=== PATIENT | female | born 2005 | race Caucasian/White ===

== ENCOUNTER 2025-04-05 20:36 | Emergency (ER) | payer OTHER, SELFPAY ==
[2025-04-05 21:15] VITALS: BP 108/74; PULSE 86; RESP 16; TEMP 37.1; O2SAT 100; BMI 21.9
[2025-04-05 21:21] LABS: Hematocrit 37.3 % (36-47); Hemoglobin 11.80 g/dL (12.4-14.8); Mean Corpuscular HGB Conc 31.6 g/dL (30-55); Mean Corpuscular Hemoglobin 27.8 pg (27-33); Mean Corpuscular Volume 87.8 fl (85-98); Nucleated Red Blood Cells % 0 %; Platelet Count 210 10^3/cmm (157-399); Red Blood Count 4.25 10^6/uL (3.85-5.65); White Blood Count 8.17 10^3/uL (4.5-13.0)
[2025-04-05 21:34] LABS: HCG, Serum Qual Negative (Negative)
[2025-04-05 21:42] LABS: Alanine Aminotransferase 17 U/L (0-33); Albumin Level 4.6 g/dL (3.5-5.2); Alkaline Phosphatase 79 U/L (35-105); Anion Gap 15.0 (5-19); Aspartate Amino Transferase 19 U/L (0-32); Blood Urea Nitrogen 9 mg/dL (6-20); Calcium 9.8 mg/dL (8.5-10.5); Carbon Dioxide 27 mmol/L (22-29); Chloride 104 mmol/L (98-107); Creatinine Clr Calc Pharmacy 126.2072; Globulin 2.8 g/dL (1.3-4.6); Glucose 102 mg/dL (65-115); Lipase 35 U/L (13-60); Osmolality Calculated 293 mOsm/kg (285-295); Potassium 4.0 mmol/L (3.5-5.1); Sodium 142 mmol/L (136-145); Total Protein 7.4 g/dL (6.6-8.7)
[2025-04-05 22:36] LABS: Glucose Urine UA Negative (Normal); Nitrate Urine Negative (Negative); Specific Gravity, Urine 1.017 (1.005-1.030)
[2025-04-05 22:41] LABS: Add Urine Microscopic? YES
--- NOTE | 2025-04-05 23:27 | ED_ITS ---
HPI - Abdominal Pain 2 General: Chief Complaint: Abdominal Pain Stated Complaint: ABD Pain Time Seen by Provider: 04/05/25 22:16 History of Present Illness: Patient is a 19-year-old female that had discomfort after intercourse last p.m. and was afraid that her IUD was dislodged. She does not have any dysuria or flank pain. This occurred after intercourse. She has had discomfort throughout the day today. No fevers. No new sexual partners. No children. Associated Symptoms: Denies nausea and vomiting Related Data Previous Rx's ?Medication ?Instructions ?Recorded doxycycline hyclate 100 mg capsule 100 mg PO BID 10 da ys #20 caps 04/05/25 Allergies Allergy/AdvReac Type Severity Reaction Status Date / Time amoxicillin Allergy ALGY-Rash Verified 04/05/25 21:21 amphetamine (From Adderall) Allergy ALGY-Anaphy Verified 04/05/25 21:21 laxis dextroamphetamine (From Allergy ALGY-Anaphy Verified 04/05/25 21:21 Adderall) laxis metronidazole (From Flagyl) Allergy ALGY-Anaphy Verified 04/05/25 21:21 laxis Penicillins Allergy ALGY-Rash Verified 04/05/25 21:21 Review of Systems 2 General: Reports: 10 or more systems reviewed and unremarkable except in HPI and below Eyes: Denies: change in vision or blurry vision ENMT: Denies: throat pain or dry mouth Card: Denies: chest pain or palpitations Resp: Denies: dyspnea or productive cough GI: Reports: abdominal pain; Denies: nausea or vomiting : Reports: pelvic pain and dyspareunia; Denies: flank pain or difficulty voiding Musc: Denies: neck pain or back pain Skin/Breast: Denies: rash or pruritus Neuro: Denies: headache(s) or numbness in extremities Physical Exam 2 : COMMON NORMALS: Yes no CVA tenderness BLADDER/KIDNEY EXAM: Yes no CVA tenderness EXTERNAL FEMALE EXAM: Yes normal appearance of the urethra and No erythema SPECULUM EXAM - VAGINA: Yes vagina atrophic SPECULUM EXAM - CERVIX: Yes Cervical os open (3 mm), Yes Nulliparous cervix present, Yes mucoid cervix, Yes watery cervix, Yes Abnormal cervical discharge present yellow, white and clear; not bloody, without tissue and malodorous and No IUD string present (string not able to visulize) BIMANUAL EXAM - VAGINA & UTERUS: Yes cervical motion tenderness and Yes uterine size normal OB/EXTERNAL & SPECULUM: C ervical os open (3 mm) Back/Pelvis: COMMON NORMALS: no CVA tenderness Course 2 Vital Signs: Vital signs: Vital Signs Temperature 98.7 F 04/05/25 21:15 Pulse Rate 86 04/05/25 21:15 Respiratory Rate 16 04/05/25 21:15 Blood Pressure 108/74 04/05/25 21:15 Pulse Oximetry 100 04/05/25 21:15 Oxygen Delivery Me thod Room Air 04/05/25 21:15 MDM - Abdominal Pain Medical Decision Making Discussed with patient whether we should order an ultrasound or not. Patient requested the ultrasound. I did go ahead and order the ultrasound after the migration was noted. After throat cutter arrived, patient refused to have her transvaginal ultrasound due to the fact the throat cutter was a male. Discussed this with patient further, and stated that we called him in just to do her ultrasound, at which time patient stated this was a boundary I am giving due to the fact he is a male. Patient has a right to refuse, which we have done, although this was initially patient's request, and her refusal was associated with questioning the professionalism of the throat cutter which is unfortunate. All of her questions answered to her dissatisfaction. She has refused her antibiotics shots as well as her Toradol. She has the right to refuse per patient rights. Medical Records I reviewed the patient's medical records. Lab Data I reviewed the patient's lab results. 04/05/25 20:59 04/05/25 20:59 Labs/Radiology: Laboratory Results WBC 8.17 10^3/uL (4.5-13.0) 04/05/25 20:59 RBC 4.25 10^6/uL (3.85-5.65) 04/05/25 20:59 Hgb 11.80 g/dL (12.4-14.8) L 04/05/25 20:59 Hct 37.3 % (36-47) 04/05/25 20:59 MCV 87.8 fl (85-98) 04/05/25 20:59 MCH 27.8 pg (27-33) 04/05/25 20:59 MCHC 31.6 g/dL (30-55) 04/05/25 20:59 RDW 13.2 % (12.1-15.1) 04/05/25 20:59 Plt Count 210 10^3/cmm (157-399) 04/05/25 20:59 MPV 9.7 fL (7.4-10.4) 04/05/25 20:59 Neut % (Auto) 54.4 % 04/05/25 20:59 Lymph % (Auto) 30.5 % 04/05/25 20:59 Millard % (Auto) 9.4 % 04/05/25 20:59 Eos % (Auto) 4.7 % 04/05/25 20:59 Baso % (Auto) 0.6 % 04/05/25 20:59 Neut # (Auto) 4.45 10^3/uL (1.8-8.0) 04/05/25 20:59 Lymph # (Auto) 2.5 10^3/uL (1.5-6.5) 04/05/25 20:59 Millard # (Auto) 0.8 10^3/uL (0.2-0.9) 04/05/25 20:59 Eos # (Auto) 0.4 10^3/uL (0.0-0.8) 04/05/25 20:59 Baso # (Auto) 0.1 10^3/uL (0.0-0.1) 04/05/25 20:59 Nucleated RBC % (auto) 0 % 04/05/25 20:59 Nucleated RBCs # 0.0 /100WBC 04/05/25 20:59 Sodium 142 mmol/L (136-145) 04/05/25 20:59 Potassium 4.0 mmol/L (3.5-5.1) 04/05/25 20:59 Chloride 104 mmol/L (98-107) 04/05/25 20:59 Carbon Dioxide 27 mmol/L (22-29) 04/05/25 20:59 Anion Gap 15.0 (5-19) 04/05/25 20:59 BUN 9 mg/dL (6-20) 04/05/25 20:59 Creatinine 0.7 mg/dL (0.5-0.9) 04/05/25 20:59 GFR Calculation 106.7 mL/min (90-130) 04/05/25 20:59 Glucose 102 mg/dL (65-115) 04/05/25 20:59 Calculated Osmolality 293 mOsm/kg (285-295) 04/05/25 20:59 Calcium 9.8 mg/dL (8.5-10.5) 04/05/25 20:59 Total Bilirubin 0.2 mg/dL (0.15-1.2) 04/05/25 20:59 AST 19 U/L (0-32) 04/05/25 20:59 ALT 17 U/L (0-33) 04/05/25 20:59 Alkaline Phosphatase 79 U/L (35-105) 04/05/25 20:59 Total Protein 7.4 g/dL (6.6-8.7) 04/05/25 20:59 Albumin 4.6 g/dL (3.5-5.2) 04/05/25 20:59 Globulin 2.8 g/dL (1.3-4.6) 04/05/25 20:59 Lipase 35 U/L (13-60) 04/05/25 20:59 HCG, Qual Negative (Negative) 04/05/25 20:59 Urine Color Yellow (Yellow) 04/05/25 22:16 Urine Appearance Cloudy (CLEAR) A 04/05/25 22:16 Urine pH 7.5 (5-7) 04/05/25 22:16 Ur Specific [place] 1.017 (1.005-1.030) 04/05/25 22:16 Urine Protein Negative (Negative) 04/05/25 22:16 Urine Glucose (UA) Negative (Normal) 04/05/25 22:16 Urine Ketones Negative (Negative) 04/05/25 22:16 Urine Blood Negative (Negative) 04/05/25 22:16 Urine Nitrate Negative (Negative) 04/05/25 22:16 Urine Bilirubin Negative (Negative) 04/05/25 22:16 Urine Urobilinogen 0.2 mg/dL (Negative) 04/05/25 22:16 Ur Leukocyte Esterase Negative (Negative) 04/05/25 22:16 Urine RBC 6-10 /hpf (0-2) 04/05/25 22:16 Urine WBC 0-5 /hpf (0-5) 04/05/25 22:16 Ur Squamous Epith Cells 6-10 /hpf (0-5) 04/05/25 22:16 Amorphous Sediment Not Reportable 04/05/25 22:16 Urine Bacteria 1+ /hpf (NONE) H 04/05/25 22:16 Hyaline Casts 0.81 /lpf 04/05/25 22:16 No radiology studies performed this visit ED provider radiology interpretation(s): Patient refused ultrasound that she requested Discharge Plan Discharge Patient Disposition: Home Clinical Impression: IUD migration Qualifiers: Encounter type: initial encounter Qualified Code(s): T83.32XA - Displacement of intrauterine contraceptive device, initial encounter Condition: Stable Prescriptions: New doxycycline hyclate 100 mg capsule 100 mg PO BID 10 Days Qty: 20 0RF Discharge Orders: Discharge ED (Routine); Ordered 04/06/25 Ordered By: Rahel Alford Referrals: Rod Wade MD [Physician, HEATING REPAIR TECHNICIAN] - 4-7 days Discharge Diet: Usual diet Discharge Activity: Resume usual activity Patient Instructions: Intrauterine Device (DC), Patient Portal & Sandra Instructions Activity Restrictions/Additional Instructions: - Your cultures for your cervix have been sent to the lab - Antibiotics have been sent to the pharmacy in the interim of the cultures. - Make sure you take a probiotic or eat active culture yogurt to avoid infectious diarrhea - Call Dr. Wade's office to follow-up this week - Return to ED with worsening pain, fever greater than 100.4 ?F Print Language: Maldivian Coding Level of Care Code ED [facility] for Catherine Buchanan
--- NOTE | 2025-04-05 23:28 | PC.NURSE ---
sti swabs taken to lab and marked vaginal swab.
[2025-04-06 01:27] LABS: Neisseria Gonorrhea NOT DETECTED (Negative)
== END 2025-04-06 00:22 | disposition home or self-care (01) ==
PROVIDERS: Emergency Medicine; Emergency Provider Physician Assistant
DX: T83.32XA Displacement of intrauterine contraceptive device, initial encounter (principal); X58.XXXA Exposure to other specified factors, initial encounter
CPT/HCPCS: 36415; 80053; 81001; 83690; 84703; 85025; 87210; 87491; 87591; 99283